=== PATIENT | female | born 1985 | race Caucasian/White ===

== ENCOUNTER 2018-11-16 14:49 | Emergency (ER) | payer OTHER ==
[~2018-11-16] VITALS: Ht 139.7 cm; Wt 82.6 kg
[2018-11-16 14:54] VITALS: Ht 139.7 cm; Wt 82.6 kg
[2018-11-16 16:52] LABS: BASOPHIL % 0.5 % (0-2); PLATELET COUNT 325 x10^3mcL (130-400)
[2018-11-16 16:55] LABS: RED CELL DISTRIBUTION WIDTH 15.1 % (11.5-14.5)
[2018-11-16 17:01] LABS: CALCIUM 8.5 mg/dL (8.5-10.1); CARBON DIOXIDE 25.9 mmol/L (21-32); CHLORIDE SERUM 105 mmol/L (98-107); CREATININE SERUM 0.7 mg/dL (0.6-1.0); GFR1 > 60 mL/min; GLUCOSE SERUM 89 mg/dL (74-106); POTASSIUM SERUM 4.2 mmol/L (3.5-5.1); SODIUM SERUM 140 mmol/L (136-145)
[2018-11-16 17:06] LABS: ALBUMIN 3.6 g/dL (3.4-5.0); ALKALINE PHOSPHATASE 93 U/L (46-116); ALT/SGPT 23 U/L (14-59); AST/SGOT 17 U/L (15-37); BILIRUBIN TOTAL 0.2 mg/dL (0.20-1.00); TOTAL PROTEIN, SERUM 7.7 g/dL (6.4-8.2)
[2018-11-16 18:03] VITALS: BP 119/75
== END 2018-11-16 18:03 | disposition home or self-care (01) ==
LOC: ED 14:49
PROVIDERS: Student in an Organized Health Care Education/Training Program
DX: K21.9 Gastro-esophageal reflux disease without esophagitis (principal); R20.2 Paresthesia of skin
CPT/HCPCS: 36415; Q0092